=== PATIENT | female | born 1995 | race Caucasian/White ===

== ENCOUNTER → 2021-03-23 14:45 | Outpatient (CLI) | payer OTHER, SELFPAY ==
--- NOTE | 2021-03-23 14:47 | DI.US.S_ITS ---
PROCEDURE: US OB LIMITED INDICATIONS: DATES OUTSIDE/PRIOR DATING DATA: First dating scan (date and location): 03/06/2021. Estimated date of delivery (ZAKIYA) from first dating scan: 09/10/2021. The calculations are made using the ultrasound ZAKIYA of 09/10/2021. TECHNIQUE: Real-time scanning was performed of the fetus, with image documentation and biometric measurements. COMPARISON: [facility], US, US OB <= 14 WEEKS FETUS, 03/06/2021, 8:44. FINDINGS: General: A single living intrauterine gestation is present. Presentation: Transverse. Placenta: Placental position is posterior , without previa. Persistent lower uterine segment contraction noted throughout the exam. Amniotic fluid index: Subjectively normal. cm, normal range is 5-24 cm. heart rate: 157 beats per minute. Maternal cervical canal: 2.8 cm long. Normal lower limit is 2.5 cm. biometrics: Biparietal diameter: 17 weeks 6 days Head circumference: 17 weeks 3 days Abdominal circumference: 17 weeks 4 days Femur length: 17 weeks 3 days Clinically estimated gestational age: 15 weeks 4 days Composite gestational age from present scan: 17 weeks 4 days Estimated weight and percentile: 190 g Other: Limited anatomy. IMPRESSION: 17 week 4 day single living IUP and anatomic survey is limited secondary to early gestational age. Follow-up is recommended. We strive to produce accurate, complete, and clear reports of imaging services. To assist us in improving patient care, this report was composed using standard report templates and voice recognition software. Therefore, it may contain abnormal punctuation, insertions and/or omissions. Occasional wrong-word or sound-alike substitutions may occur. Though we review the report and make efforts to correct it, we do recommend that the report be read carefully in proper context to recognize any text inaccuracies. Dictated by: Reed LANDON Interpreted: Jesus Andrade MD on 03/23/2021 at 15:19 Transcribed by: FEMI on 03/23/2021 at 15:23 Approved by: Jesus Andrade M.D. on 03/23/2021 at 17:28
== END ==
PROVIDERS: PCP Obstetrics & Gynecology; Referring Provider Obstetrics & Gynecology; Visit Provider Obstetrics & Gynecology
DX: Z34.02 Encounter for supervision of normal first pregnancy, second trimester (principal); Z3A.17 17 weeks gestation of pregnancy
CPT/HCPCS: 76815

== ENCOUNTER → 2021-03-30 11:23 | Outpatient (CLI) | payer OTHER, SELFPAY ==
[2021-03-30 18:43] LABS: COVID19 -Nasal RAPID POSITIVE (Negative)
== END ==
PROVIDERS: PCP Obstetrics & Gynecology; Visit Provider Nurse Practitioner Family
DX: U07.1 COVID-19 (principal); Z20.822 Contact with and (suspected) exposure to COVID-19; R50.9 Fever, unspecified
CPT/HCPCS: 87635

== ENCOUNTER → 2021-04-06 15:41 | Outpatient (CLI) | payer OTHER, SELFPAY ==
[2021-04-06 16:32] LABS: Add Manual Diff / Slide Review NO; Basophils Absolute Auto 0 /uL (0-100); Basophils Percent Auto 0.2 % (0-2); Eosinophils Absolute Auto 0 /uL (0-450); Eosinophils Percent Auto 0.4 % (2-4); Hematocrit 31.3 % (36-46); Hemoglobin 11.1 g/dL (12.0-16.0); Lymphocytes Absolute Auto 1900 /uL (1100-4500); Lymphocytes Percent Auto 22.1 % (25-40); Mean Corpuscular HGB Conc 35.6 % (30-36); Mean Corpuscular Volume 90.1 fL (80-100); Monocytes Absolute Auto 600 /uL (0-900); Monocytes Percent Auto 6.5 % (3-14); Neutrophils Absolute Auto 6200 /uL (1500-7000); Neutrophils Percent Auto 70.8 % (50-75); Platelet Count 313 X10^3/uL (150-400); Red Blood Cell Count 3.48 X10^6/uL (4.0-5.2); Red Cell Distribution Width 13.5 % (11.6-14.8); White Blood Cell Count 8.7 X10^3/uL (4.5-11.0)
[2021-04-07 06:36] LABS: RPR Screen Non Reactive (Non Reactive)
[2021-04-07 08:12] LABS: Varicella IgG Antibody 408 index (Immune >165)
[2021-04-09 16:27] LABS: Hepatitis B Surface Antigen NEGATIVE s/c (NEGATIVE); Rubella Antibody IgG 11.3 IU/mL (>15)
[2021-04-09 16:43] LABS: HIV 1 & 2 Ab/Ag 4th Gen Combo NEGATIVE (NEGATIVE); Hep C Virus Ab w/Reflex Quant NEGATIVE s/c (NEGATIVE)
[2021-04-09 22:59] LABS: AFP, Serum 78.1 ng/mL (.); Calc Gestational Age Ultrasound (.); Estriol, Free 1.96 ng/mL (.); Inhibin A, Dimeric 175.68 pg/mL (.); Maternal Ethnicity Caucasian (.); Maternal Weight 150 lbs (.); Number of Fetuses No (.); OSBR Risk 1 IN 3220 (.); Results Report (.); Test Results *Screen Negative* (.); hCG, MoM 1.43 (.); hCG, Serum 36543 mIU/mL (.)
== END ==
PROVIDERS: PCP Obstetrics & Gynecology; Referring Provider Obstetrics & Gynecology; Visit Provider Obstetrics & Gynecology
DX: Z34.92 Encounter for supervision of normal pregnancy, unspecified, second trimester (principal); Z3A.19 19 weeks gestation of pregnancy
CPT/HCPCS: 36415; 80055; 82105; 82677; 84702; 86336; 86787; 86803; 86850; 86900; 86901; 87389

== ENCOUNTER → 2021-05-03 09:25 | Outpatient (CLI) | payer OTHER, SELFPAY ==
[2021-05-03 11:43] LABS: Appearance Urine UA SL CLOUDY; Bilirubin Urine UA NEGATIVE (NEGATIVE); Color Urine UA YELLOW; Glucose Urine UA NEGATIVE (Negative); Ketones Urine UA NEGATIVE (NEGATIVE); Leukocyte Esterase Urine UA 1+ (NEGATIVE); Nitrite Urine UA NEGATIVE (Negative); Occult Blood Urine UA NEGATIVE (Negative); Protein Urine UA NEGATIVE (Negative); Urobilinogen Urine UA 0.2 E.U./dL (0.2)
[2021-05-03 11:59] LABS: Bacteria Urine Moderate (10-30); RBC Urine None Seen (0-5/HPF); Squamous Epithelial Cell Urine 1-5 /HPF (0-5/HPF); WBC Urine 1-5/HPF (0-5/HPF)
== END ==
PROVIDERS: PCP Obstetrics & Gynecology; Visit Provider Obstetrics & Gynecology
DX: Z34.01 Encounter for supervision of normal first pregnancy, first trimester (principal)
CPT/HCPCS: 81003; 81015; 87086

== ENCOUNTER → 2021-05-21 08:07 | Outpatient (CLI) | payer OTHER, SELFPAY ==
[2021-05-21 11:17] LABS: Hematocrit 32.9 % (36-46); Hemoglobin 11.3 g/dL (12.0-16.0)
[2021-05-21 15:06] LABS: GTT (PREG) 1 Hour PP 50gm Dose 133 mg/dL (76-139)
== END ==
PROVIDERS: Referring Provider Obstetrics & Gynecology; Visit Provider Obstetrics & Gynecology
DX: Z34.92 Encounter for supervision of normal pregnancy, unspecified, second trimester (principal); Z3A.27 27 weeks gestation of pregnancy
CPT/HCPCS: 36415; 82950; 85014; 85018

== ENCOUNTER → 2021-07-19 15:15 | Outpatient (CLI) | payer OTHER, SELFPAY ==
[2021-07-19 16:51] LABS: Alanine Aminotransferase 18 IU/L (<35); Albumin 3.6 g/dL (3.5-5.0); Alkaline Phosphatase 147 U/L (38-126); Aspartate Aminotransferase 27 IU/L (14-36); BUN Creatinine Ratio 14.6 (6-22); Bilirubin Total 0.4 mg/dL (0.2-1.3); Blood Urea Nitrogen 7 mg/dL (7-17); Calcium 8.5 mg/dL (8.4-10.2); Carbon Dioxide 21 mmol/L (22-32); Chloride 108 mmol/L (98-107); Estimated Glomerular Filt Rate > 60 mL/min (>60); Globulin 3.7 g/dL (1.7-4.1); Glucose 104 mg/dL (70-100); HEMOLYSIS < 15 (0-50); Potassium 3.9 mmol/L (3.4-5.1); Sodium 137 mmol/L (137-145); Total Protein 7.3 g/dL (6.3-8.2)
[2021-07-20 10:15] LABS: Bile Acids 5.8 umol/L (0.0-10.0)
== END ==
PROVIDERS: Referring Provider Obstetrics & Gynecology; Visit Provider Obstetrics & Gynecology
DX: L29.9 Pruritus, unspecified (principal)
CPT/HCPCS: 36415; 80053; 82239

== ENCOUNTER → 2021-08-06 12:08 | Outpatient (CLI) | payer OTHER, SELFPAY ==
[2021-08-07 10:57] LABS: Strep Grp B PCR NEG for Grp B Strep
== END ==
PROVIDERS: Visit Provider Obstetrics & Gynecology
DX: Z34.03 Encounter for supervision of normal first pregnancy, third trimester (principal); Z3A.37 37 weeks gestation of pregnancy
CPT/HCPCS: 87653

== ENCOUNTER 2021-08-16 16:35 | Outpatient (CLI) | payer OTHER, SELFPAY ==
--- NOTE | 2021-08-16 17:17 | P.TNLD_ITS ---
Visit Information Visit Information Date of evaluation: 08/16/21 Primary OB Provider: Virginia Chen Reason for Evaluation: Yes non-stress test Comments/Additional reasons for admission: This patient is a 25yo P0 @38 weeks presenting with decreased movement. No other symptoms or concerns. [facility] Medical History (Updated 03/13/21 @ 22:12 by Jada Amezquita) Acne (~2008) Allergies (~1999) Ankle pain (~2013) Bronchitis (~1997) Chicken pox (~1995) Fractures (~2017) Pneumonia (~2012) Seasonal allergies (~1999) Wears glasses Surgical History (Updated 02/28/21 @ 08:56 by Carina Mullins RN) [place] teeth extracted Family History (Updated 03/13/21 @ 22:13 by Jada Amezquita) Mother Miscarriage DJD (degenerative joint disease) Macular degeneration Father Atrial fibrillation History of heart disease Grandmother Diabetes mellitus Grandfather Hypertension Glaucoma Grandmother History of heart disease Grandfather No problems noted. 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 ) current occupational exposures/hazards: No special ever needs: No seatbelt use: always do you feel safe at home: Yes Smoking Status: Never smoker second hand exposure: No alcohol intake: former (Pre-: rarely. ) substance use type: does not use during the past year weight has: remained stable well-balanced diet: daily or most days daily servings fruits/ve-4 caffeine: Yes (1 cup a week) Type(s) of exercise: walking and normal ROM and activity frequency: 3-4 times per week Exam Vital Signs (past 8 hours): 130/72 Evaluation Evaluation Baseline heart rate: 140 Variability: Moderate (11-25) monitor accelerations: Present Monitor Decelerations: Absent Category of Tracing: Reactive Status: Category l Diagnosis, Plan/Disposition Plan/Disposition Plan: Patient noted 23 movements in 30 minutes, precautions reviewed. Home with routine precautions. OB Disposition: home
== END 2021-08-16 17:15 | disposition home or self-care (01) ==
LOC: LABOR 17:24 → OB 08-17 11:36
PROVIDERS: Referring Provider Obstetrics & Gynecology; Visit Provider Obstetrics & Gynecology
DX: O36.8130 Decreased fetal movements, third trimester, not applicable or unspecified (principal); Z3A.38 38 weeks gestation of pregnancy
CPT/HCPCS: 59025; G0378; G0379

== ENCOUNTER 2021-08-19 05:00 | Emergency (ER) | payer OTHER, SELFPAY ==
[2021-08-19 05:05] VITALS: BP 118/76; PULSE 80; RESP 18; TEMP 36.1; O2SAT 97; BMI 33.2
--- NOTE | 2021-08-19 05:25 | ED_ITS ---
HPI - URI/Sore Throat General Chief Complaint: Upper Respiratory Symptoms Stated Complaint: fever/cough x2 days Time Seen by Provider: 08/19/21 05:24 Source: patient Mode of arrival: Ambulatory History of Present Illness HPI Narrative: 25-year-old female nonsmoker is a at about 30 weeks and managed locally by Dr. Chen presents with her significant other and a chief complaint of upper respiratory symptoms including nasal congestion, runny nose, sneezing cough and low-grade fever for the past 2 days. She has taken Tylenol and antihistamines with minimal relief. She denies any headache or neck pain. She is exposed to other people with similar symptoms. She denies nausea, vomiting or diarrhea. She denies dysuria, frequency or urgency. She has no vaginal bleeding or leakage of fluid. Related Data Home Medications Medication Instructions Recorded Confirmed diphenhydramine HCl 25 mg capsule 50 mg PO BEDTIME PRN cap 02/28/21 08/19/21 (Benadryl) prenat.vits,alice,nhh-seca-aejhu 1 tab PO DAILY 02/28/21 08/19/21 Allergies Allergy/AdvReac Type Severity Reaction Status Date / Time promethazine [From Phenergan] Allergy Intermediate Hives Verified 08/06/21 11:46 Sulfa (Sulfonamide Allergy Intermediate Hives Verified 08/06/21 11:46 Antibiotics) Review of Systems Review of Systems Narrative: GENERAL: See HPI HEENT: See HPI RESPIRATORY: See HPI CARDIOVASCULAR: Denies chest pain, palpitations, orthopnea, edema, GASTROINTESTINAL: Denies nausea, vomiting, abdominal pain, diarrhea, constipation, melena. : Denies dysuria, frequency, incontinence, hematuria, urinary retention. MUSCULOSKELETAL: denies weakness, joint pain, or bony pain SKIN: Denies rash, skin lesions, or other NEUROLOGIC: Denies weakness, headache, numbness, change in speech, confusion, seizures, incoordination. PSYCHIATRIC: No concerning psychosocial issues. 12 point review of systems is negative except for those stated above Patient History Medical History (Updated 08/19/21 @ 07:14 by Tyson Reeves DO) Acne (~2008) Allergies (~1999) Ankle pain (~2013) Bronchitis (~1997) Chicken pox (~1995) Fractures (~2017) Pneumonia (~2012) Seasonal allergies (~1999) Wears glasses Surgical History (Updated 02/28/21 @ 08:56 by Carina Mullins RN) [place] teeth extracted Family History (Updated 03/13/21 @ 22:13 by Jada Amezquita) Mother Miscarriage DJD (degenerative joint disease) Macular degeneration Father Atrial fibrillation History of heart disease Grandmother Diabetes mellitus Grandfather Hypertension Glaucoma Grandmother History of heart disease Grandfather No problems noted. 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 ) current occupational exposures/hazards: No special ever needs: No seatbelt use: always do you feel safe at home: Yes Smoking Status: Never smoker second hand exposure: No alcohol intake: former (Pre-: rarely. ) substance use type: does not use during the past year weight has: remained stable well-balanced diet: daily or most days daily servings fruits/ve-4 caffeine: Yes (1 cup a week) Type(s) of exercise: walking and normal ROM and activity frequency: 3-4 times per week Smoking Status: Never smoker alcohol intake frequency: 0-2 drinks per day Substance Use Type: does not use Exam Narrative Exam Narrative: GENERAL: [25] year old patient appears stated age. Well-developed patient, in mild distress. HEAD: Atraumatic. Normocephalic. EYES: Pupils equal round and reactive. Extraocular motions intact. No scleral icterus. No injection or drainage. ENT: Nasal congestion with clear bilateral drainage Throat without erythema, tonsillar hypertrophy or exudate. Airway patent. NECK: Trachea midline. Non tender CARDIOVASCULAR: Regular rate and rhythm without murmurs, gallops, or rubs. RESPIRATORY: Clear to auscultation. Breath sounds equal bilaterally. No wheezes, rales, or rhonchi. GASTROINTESTINAL: Abdomen soft, non-tender, nondistended. EXTREMITIES: No edema or joint tenderness. BACK: Nontender without deformity or crepitance. No flank tenderness. NEURO: AOx3. SKIN: No rash or erythema of visible areas Initial Vital Signs Initial Vital Signs: Vital Signs Temperature 97.0 F L 06/05/22 05:05 Pulse Rate 80 06/05/22 05:05 Respiratory Rate 18 08/19/21 05:05 Blood Pressure 118/76 08/19/21 05:05 Pulse Oximetry 97 08/19/21 05:05 Course Orders Ordered: ED Orders 08/19/21 05:55 Respiratory Panel (Film Array) Stat Vital Signs Vital signs: Vital Signs - 8 hr 08/19/21 05:05 Temperature 97.0 F L Pulse Rate 80 Respiratory Rate 18 Blood Pressure 118/76 Pulse Oximetry 97 MDM - URI/Sore Throat Lab Data Labs: Lab Results 08/19/21 Range/Units 05:55 Chlamy pneumoniae PCR Not detected (Not Detect) Adenovirus (PCR) Not detected (Not Detect) B. pertussis DNA (PCR) Not detected (Not Detecte) B.parapertussis DNA PCR Not detected (Not Detecte) Coronavirus OC43 (PCR) Detected H (Not Detect) Coronavirus HKU1 (PCR) Not detected (Not Detect) Coronavirus 229E (PCR) Not detected (Not Detect) SARS-CoV-2 (PCR) Not detected (Not Detecte) Coronavirus NL63 (PCR) Not detected (Not Detect) Human Metapneumovir PCR Not detected (Not Detect) Influenza Type A (PCR) Not detected (Not Detect) Influenza Type B (PCR) Not detected (Not Detect) M. pneumoniae (PCR) Not detected (Not Detect) Parainfluenza 1 (PCR) Not detected (Not Detect) Parainfluenza 2 (PCR) Not detected (Not Detect) Parainfluenza 3 (PCR) Not detected (Not Detect) Parainfluenza 4 (PCR) Not detected (Not Detect) RSV (PCR) Not detected (Not Detect) Entero/Rhino (PCR) Not detected (Not Detect) Discharge Plan Departure Patient Disposition: Home Clinical Impression: Viral respiratory illness Instructions: DI for Viral Upper Respiratory Infection -- Adult Activity Restrictions/Additional Instructions: *You have been diagnosed with [viral upper respiratory infection. Here swab was positive for a non COVID coronavirus *What to do: *Please continue to take your regular medications as directed. [ ] New medication prescriptions sent to your pharmacy: [ ] [ ] New medication written as a paper prescription [ x] No new medications given *Please follow up with your primary care provider in 2-3 days, call for an appointment. Let them know you were seen in the Emergency Department and that we ask that you be seen in follow up. We will electronically transmit a record of today's note if your PCP is in our system *If you do not have a primary care provider please contact the [facility] Resource line at [phone]. They will ask some questions about your medical history and help get you set up with a doctor in the community. *Return to Emergency Department if you should have any new, worsening or concerning symptoms Prescriptions: No Action prenat.vits,alice,eus-iffc-doind Tablet 1 tab PO DAILY 0RF diphenhydramine HCl [Benadryl] 25 mg capsule 50 mg PO BEDTIME PRN (Reason: allergy symptoms) 0RF Referrals: Edmundo Arguello [Primary Care Provider] - Visit Report Forms: Patient Portal/API
[2021-08-19 07:09] LABS: Adenovirus Not Detected (Not Detect); B. parapertussis Not Detected (Not Detecte); Bordetella pertussis Not Detected (Not Detecte); Chlamydophila pneumoniae Not Detected (Not Detect); Coronavirus 229E Not Detected (Not Detect); Coronavirus HKU1 Not Detected (Not Detect); Coronavirus NL 63 Not Detected (Not Detect); Coronavirus OC43 Detected (Not Detect); Human Metapneumovirus Not Detected (Not Detect); Human Rhinovirus/Enterovirus Not Detected (Not Detect); Influenza A Not Detected (Not Detect); Influenza B Not Detected (Not Detect); Mycoplasma pneumoniae Not Detected (Not Detect); Parainfluenza Virus 1 Not Detected (Not Detect); Parainfluenza Virus 2 Not Detected (Not Detect); Parainfluenza Virus 3 Not Detected (Not Detect); Parainfluenza Virus 4 Not Detected (Not Detect); Respiratory Syncytial Virus Not Detected (Not Detect); SARS- CoV-2 Not Detected (Not Detecte)
== END 2021-08-19 07:20 | disposition home or self-care (01) ==
PROVIDERS: Emergency Provider Emergency Medicine
DX: J06.9 Acute upper respiratory infection, unspecified (principal); Z20.822 Contact with and (suspected) exposure to COVID-19
CPT/HCPCS: 87633; 99281; 99282

== ENCOUNTER 2021-08-19 20:48 | Inpatient (IN) | payer OTHER, SELFPAY ==
[2021-08-20] MEDS: AZITHROMYCIN 500 MG in DEXTROSE 5% IN WATER 250 ML 250 MG IV (00:25)
[2021-08-20] MEDS: CEFAZOLIN 2 GM/20 ML SYRINGE IV (00:25)
[2021-08-20 00:33] LABS: Add Manual Diff / Slide Review NO; Basophils Absolute Auto 0 /uL (0-100); Basophils Percent Auto 0.3 % (0-2); Eosinophils Absolute Auto 100 /uL (0-450); Eosinophils Percent Auto 1.1 % (2-4); Hematocrit 32.2 % (36-46); Hemoglobin 10.7 g/dL (12.0-16.0); Lymphocytes Absolute Auto 1700 /uL (1100-4500); Mean Corpuscular HGB Conc 33.2 % (30-36); Mean Corpuscular Hemoglobin 29.8 PG (26-34); Mean Corpuscular Volume 89.6 fL (80-100); Monocytes Absolute Auto 700 /uL (0-900); Monocytes Percent Auto 7.8 % (3-14); Neutrophils Absolute Auto 5800 /uL (1500-7000); Neutrophils Percent Auto 69.8 % (50-75); Platelet Count 316 X10^3/uL (150-400); Red Blood Cell Count 3.59 X10^6/uL (4.0-5.2); Red Cell Distribution Width 13.6 % (11.6-14.8); White Blood Cell Count 8.3 X10^3/uL (4.5-11.0)
[2021-08-20 03:28] LABS: Adenovirus Not Detected (Not Detect)
[2021-08-20 03:31] LABS: B. parapertussis Not Detected (Not Detecte); Bordetella pertussis Not Detected (Not Detecte); Coronavirus 229E Not Detected (Not Detect); Coronavirus HKU1 Not Detected (Not Detect); Coronavirus NL 63 Not Detected (Not Detect); Coronavirus OC43 Detected (Not Detect); Human Metapneumovirus Not Detected (Not Detect); Human Rhinovirus/Enterovirus Not Detected (Not Detect); Influenza A Not Detected (Not Detect); Influenza B Not Detected (Not Detect); Parainfluenza Virus 1 Not Detected (Not Detect); Parainfluenza Virus 2 Not Detected (Not Detect); Parainfluenza Virus 3 Not Detected (Not Detect); Parainfluenza Virus 4 Not Detected (Not Detect); Respiratory Syncytial Virus Not Detected (Not Detect); SARS- CoV-2 Not Detected (Not Detecte)
[2021-08-20 03:32] LABS: Chlamydophila pneumoniae Not Detected (Not Detect); Mycoplasma pneumoniae Not Detected (Not Detect)
[2021-08-20] MEDS: LACTATED RINGERS 1,000 ML 100 ML IV ×4 (06:41→23:31)
--- NOTE | 2021-08-20 08:16 | P.HPOB_ITS ---
OB HPI Date/Time Date of admission: 08/19/21 Date Patient Seen: 08/20/21 Time Patient Seen: 07:45 History of Present Condition Chief complaint: OBS ZAKIYA Calculator Estimated Delivery Date Method Current WG Current Estimate 08/27/21 Ultrasound #2 39w 0d Other Estimates 10/07/21 LMP (Certain) 33w 1d 09/11/21 Ultrasound #1 36w 6d Estimated Gestational Age (weeks): 39 : 1 Para: 0 Narrative: This patient is a 25yo @39+0 by 2nd trimester US, presenting with PROM at 8:30 PM for copious clear fluid. Reports slowly increasing contractions, no VB, no LOF. Good movement, no other symptoms. has been otherwise uncomplicated. No significant medical, surgical history. care: good care and initiated at week # (15) Dating criteria OB: based on 2nd trimester US only Ultrasounds: normal mid trimester US Obstetrical complications: none Medical complications OB: none Indications Indication for induction OB: other (PROM) Preadmission Labs Last OB Lab Results: Blood Type O Positive 08/19/21 23:50 08/19/21 Antibody Screen Negative 08/19/21 23:50 08/19/21 Hematocrit 32.2 % (36-46) L 08/19/21 23:50 08/19/21 Hemoglobin 10.7 g/dL (12.0-16.0) L 08/19/21 23:50 08/19/21 Hepatitis B Surface Antigen Negative s/c (NEGATIVE) 04/06/21 15:56 04/06/21 Hepatitis C Antibody Negative s/c (NEGATIVE) 04/06/21 15:56 04/06/21 Rubella Antibody 11.3 IU/mL (>15) L 04/06/21 15:56 04/06/21 Varicella-Zoster IgG Antibody 408 index (Immune >165) 04/06/21 15:56 04/06/21 Glucose 1 Hour 133 mg/dL (76-139) 05/21/21 10:00 05/21/21 Group B Streptococcus (PCR) Neg for grp b strep 08/06/21 12:08 08/06/21 -: Chlamydia screen: negative, Gonorrhea screen: negative and Urine: negative Genetic Screens: Quad screen: Normal External Labs -: Urine: negative Evaluation Evaluation Baseline heart rate: 135 Variability: Moderate (11-25) monitor accelerations: Present Monitor Decelerations: Absent Contraction Frequency (minutes): 10 Uterine Contraction Intensity: Moderate Category of Tracing: Reactive Status: Category l Dilation (cm): 3 Effacement (%): 75 Dilation: 3-4 cm Effacement: >/=80% station: -1 Position of cervix: mid Consistency: medium Faust score: 9 PFSH Medical History Acne (~2008) Allergies (~1999) Ankle pain (~2013) Bronchitis (~1997) Chicken pox (~1995) Fractures (~2017) Pneumonia (~2012) Seasonal allergies (~1999) Wears glasses Surgical History [place] teeth extracted Family History Mother Miscarriage DJD (degenerative joint disease) Macular degeneration Father Atrial fibrillation History of heart disease Grandmother Diabetes mellitus Grandfather Hypertension Glaucoma Grandmother History of heart disease Grandfather No problems noted. 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 ) current occupational exposures/hazards: No special ever needs: No seatbelt use: always do you feel safe at home: Yes Smoking Status: Never smoker second hand exposure: No alcohol intake: former (Pre-: rarely. ) substance use type: does not use during the past year weight has: remained stable well-balanced diet: daily or most days daily servings fruits/ve-4 caffeine: Yes (1 cup a week) Type(s) of exercise: walking and normal ROM and activity frequency: 3-4 times per week Meds Home Medications and Allergies Home Medications Medication Instructions Recorded Confirmed Type diphenhydramine HCl 25 mg capsule 50 mg PO BEDTIME PRN cap 02/28/21 08/19/21 History (Benadryl) prenat.vits,alice,mko-aidh-pmjjo 1 tab PO DAILY 02/28/21 08/19/21 History Allergies Allergy/AdvReac Type Severity Reaction Status Date / Time promethazine [From Phenergan] Allergy Intermediate Hives Verified 08/06/21 11:46 Sulfa (Sulfonamide Allergy Intermediate Hives Verified 08/06/21 11:46 Antibiotics) Review of Systems Constitutional Constitutional: Reports system reviewed and no additional complaints, except as documented Cardiovascular Cardiovascular: Reports system reviewed and no additional complaints, except as documented Respiratory Respiratory: Reports system reviewed and no additional complaints, except as documented Gastrointestinal Gastrointestinal: Reports system reviewed and no additional complaints, except as documented Genitourinary Genitourinary: Reports system reviewed and no additional complaints, except as documented Musculoskeletal Musculoskeletal: Reports system reviewed and no additional complaints, except as documented Neurologic Neurologic: Reports system reviewed and no additional complaints, except as documented OB Exam Narrative Exam Narrative: Patient resting in bed, comfortable through contractions. GI Palpation: Yes soft and No tender External Female Exam: Yes normal external appearance Other: EFW 7#8 Objective Labs Result Diagrams: 08/19/21 23:50 Labs: Laboratory Results - last 24 hr 08/19/21 08/19/21 08/20/21 23:50 23:50 01:01 WBC 8.3 RBC 3.59 L Hgb 10.7 L Hct 32.2 L MCV 89.6 MCH 29.8 MCHC 33.2 RDW 13.6 Plt Count 316 Neut % (Auto) 69.8 Lymph % (Auto) 21.0 L Meagher % (Auto) 7.8 Eos % (Auto) 1.1 L Baso % (Auto) 0.3 Neut # (Auto) 5800 Lymph # (Auto) 1700 Meagher # (Auto) 700 Eos # (Auto) 100 Baso # (Auto) 0 Chlamy pneumoniae PCR Not detected Adenovirus (PCR) Not detected B. pertussis DNA (PCR) Not detected B.parapertussis DNA PCR Not detected Coronavirus OC43 (PCR) Detected H Coronavirus HKU1 (PCR) Not detected Coronavirus 229E (PCR) Not detected SARS-CoV-2 (PCR) Not detected Coronavirus NL63 (PCR) Not detected Human Metapneumovir PCR Not detected Influenza Type A (PCR) Not detected Influenza Type B (PCR) Not detected M. pneumoniae (PCR) Not detected Parainfluenza 1 (PCR) Not detected Parainfluenza 2 (PCR) Not detected Parainfluenza 3 (PCR) Not detected Parainfluenza 4 (PCR) Not detected RSV (PCR) Not detected Entero/Rhino (PCR) Not detected Blood Type O Positive Antibody Screen Negative Assessment and Plan Assessment and Plan Assessment and Plan narrative: This patient is admitted with PROM. Due to floor staffing pitocin could not be started overnight, but she is now 12 hours ruptured and not maricruz significantly. Patient is for pitocin augmentation per protocol. Patient declines pitocin without epidural, which will be obtained now. - cEFM, toco - pitocin per protocol, discussed at length with patient and spouse including risk of intraamniotic infection with rupture longer than 24 hours
[2021-08-20] MEDS: OXYTOCIN PREMIX 30 UNIT/500 ML PLAST..BAG IV (08:32)
[2021-08-20] MEDS: FENT 2MCG/ML BUPIV 0.125% EPI 200 MCG/100 ML PLAST..BAG 6 MCG EPIDURAL ×2 (10:40→17:41)
--- NOTE | 2021-08-20 11:37 | PM.AN.REGBLK ---
Regional Block Pre-procedure Procedure: Continuous Lumbar Epidural for L&D Attending OB provider: Virginia Chen PMH/HUMBLE narrative: term gestation, induction for PROM PSH/Anesthesia history narrative: None ASA Class: II Labs: Hct 32.2 % (36-46) L 08/19/21 23:50 Plt Count 316 X10^3/uL (150-400) 08/19/21 23:50 Medications: Current Medications Generic Name Dose Route Start Last Admin Trade Name Freq PRN Reason Stop Dose Admin Carboprost Tromethamine 250 mcg 08/19/21 21:43 Carboprost 250 Mcg/Ml Ampul IM Q90M PRN Bleeding Diphenhydramine HCl 25 mg 08/20/21 09:50 Diphenhydramine 50 Mg/Ml Vial IV Q10M PRN Pruritis Lactated Ringer's 1,000 mls @ 100 mls/hr 08/19/21 21:45 08/20/21 10:11 Lactated Ringers IV 100 mls/hr CONT EARL Administration Oxytocin/Lactated Ringer's 30 unit in 500 mls @ 200 mls/hr 08/19/21 21:43 Oxytocin Premix IV CONT PRN Bleeding Protocol Tranexamic Acid 1,000 mg/ 100 mls @ 200 mls/hr 08/19/21 21:43 Sodium Chloride IV NOW PRN Bleeding Oxytocin/Lactated Ringer's 30 unit in 500 mls @ 3 mls/hr 08/19/21 21:45 08/20/21 08:32 Oxytocin Premix IV 3 milliunit/min TITRATE EARL 3 mls/hr Administration Protocol 3 MILLIUNIT/MIN FENT 2MCG/ML BUPIV 0.125% EPI 200 mcg in 100 mls @ 6 mls/hr 08/20/21 10:00 08/20/21 10:40 Fentanyl/Bupiv/Ns 2mcg/Ml - 0.125% EPIDURAL 6 mls/hr CONT EARL Administration Methylergonovine Maleate 0.2 mg 08/19/21 21:43 Methylergonovine 0.2 Mg Tablet PO Q6HR PRN Heavy Bleeding Methylergonovine Maleate 0.2 mg 08/19/21 21:43 Methylergonovine 0.2 Mg/Ml Vial IM NOW PRN Bleeding Misoprostol 800 mcg 08/19/21 21:43 Misoprostol 200 Mcg Tablet HI NOW PRN Bleeding Misoprostol 1,000 mcg 08/19/21 21:43 Misoprostol 200 Mcg Tablet HI NOW PRN Bleeding Misoprostol 400 mcg 08/19/21 21:43 Misoprostol 200 Mcg Tablet SL NOW PRN Bleeding Nalbuphine HCl 2.5 mg 08/20/21 09:50 Nalbuphine 20 Mg/Ml Ampul IV Q10M PRN Pruritis Oxytocin 10 unit 08/19/21 21:43 Oxytocin 10 Unit/Ml Vial IM NOW PRN Bleeding Allergies: Allergies Allergy/AdvReac Type Severity Reaction Status Date / Time promethazine [From Phenergan] Allergy Intermediate Hives Verified 08/06/21 11:46 Sulfa (Sulfonamide Allergy Intermediate Hives Verified 08/06/21 11:46 Antibiotics) Procedure Insertion date: 08/20/21 Insertion time: 09:58 Prep/Local: betadine x3 and 1% lidocaine Interspace: L 3-4 Patient position: sitting Needle: 18 gauge Marielatead Loss of resistance with: saline DAWIT at (cm): 6 Catheter placed at SKIN (cm): 11 Insertion: No CSF, No Blood, No Paresthesia with insertion, No Paresthesia with injection and No Test dose reaction Initial Medications TEST DOSE time: 10:18 BOLUS DOSE time: 10:24 BOLUS DOSE med: other (Fentanyl 100 mcg) Infusion INFUSION: 0.125% bupivacaine and with fentanyl 2 mcg/mL Initial rate (mL/hr): 8 Subsequent interventions: She was sleeping peacefully after her epidural placement when she woke up in pain. No uterine rupture suspected. The epidural has not moved out of place. I removed it and replaced it with a CSE at 12:10. Intrathecal dose of Bupi 2.5 mg and Fentanyl 20 mcg. Epidural advanced without difficulty. Test dose negative at 12:31. Epidural bolus of Fentanyl 80 mcgs given at 12:32.. She was quickly comfortable. Infusion resumed. 17:45. Ce= 8. Station 0. c/o back pressure. Bolus given of 5 ml lido 1.5% with epi, and Fentanyl 100 mcg. 21:15 - C&P with sudden onset of severe pain. Screaming. Bolus given of 5 ml lido 1.5% with epi, and Fentanyl 100 mcg. 21:35 - No improvement. Catheter inspected and noted to be out of position. Plan for replacement. Pt to sitting position. She also wants to use the bedpan, so it is placed under her. She is able to sit still for the CSE. Spinal dose given at L 3-4 easily after sterile prep/drape/ local and after removal of previous epidural. She becomes immediately comfortable and wants to fall asleep. She is laid to her left side, bed moreland removed unused, back reprepped and redraped, and after attention is paid to her IV function (it is successfully addressed by the RN), I am able to place her epidural at L 3-4 right paramedian and have a negative test dose. Spinal portion is dose with Bupi 2.5 mg and Fentanyl 20 mcg. Epidural bolus of Fentanyl 80 mcgs given. Pt still asleep at 22:45, FHT reassuring, FOB reassured and encouraged to take a break. 23:40: Pt refuses to go on with her labor. Decision for . The epidural has again stopped working for her. Since the spinal portion of the CSE has worked well, I will do a spinal for her so that she can receive Duramorph. Post-procedure Anesthesia time START: 09:58 Anesthesia time END: 00:15 Post-procedure Anesthesia Assessment: Yes CV function: HR/BP stable, Yes Resp function: RR/sat/airway adequate, Yes Post-op hydration adequate, Yes Pain control adequate, Yes Nausea & vomiting absent, Yes Temperature > 36 C and Yes Mental status appropriate
--- NOTE | 2021-08-20 13:37 | PM.OBPNLAB ---
Date/Time Date Patient Seen: 08/20/21 Time Patient Seen: 13:37 Pain Control Pain control: epidural Comments: Patient required replacement of epidural Pelvic Exam Dilation (cm): 4 Effacement (%): 100 station: -1 Amniotic membrane status: Leaking (clear fluid) Contractions Pitocin rate (mU/min): 7 Contraction frequency (min): 4 Contraction pattern: Regular Status status: Category l Heart Rate Baseline: 130 Monitor Accelerations: Present Monitor Decelerations: Absent Monitor Variability: Moderate Assessment and Plan Assessment: induction ongoing Plan: continuous present management Comments: This patient is being induced for PROM. Patient had refused pitocin and has required two epidurals but is now more comfortable, discussed importance of induction as now ruptured x 18 hours. For frequent repositioning, pit per protocol.
--- NOTE | 2021-08-20 18:34 | PM.OBPNLAB ---
Date/Time Date Patient Seen: 08/20/21 Time Patient Seen: 17:30 Pain Control Pain control: epidural Pelvic Exam Dilation (cm): 8 Effacement (%): 100 station: 0 Amniotic membrane status: Leaking (clear fluid) Contractions Pitocin rate (mU/min): 10 Contraction frequency (min): 2 Contraction pattern: Regular Status status: Category l Heart Rate Baseline: 135 Monitor Accelerations: Present Monitor Decelerations: Absent Monitor Variability: Moderate Assessment and Plan Assessment: active labor Plan: continuous present management Comments: 8.5cm. For epidural bolus, repositioning. Anticipate .
--- NOTE | 2021-08-20 19:42 | P.PNOB_ITS ---
Date/Time Date Patient Seen: 08/20/21 Time Patient Seen: 19:42 Pain Control Pain control: tolerating well and epidural Pelvic Exam Dilation (cm): 9 Effacement (%): 100 station: 0 Amniotic membrane status: Leaking (clear fluid) Comments: 9.5 with thick anterior lip. Palpably LOP, confirmed with US. Placed in exagg erated Agee on left. Contractions Pitocin rate (mU/min): 12 Contraction frequency (min): 2 Contraction pattern: Regular Contraction intensity: Moderate Status status: Category l Heart Rate Baseline: 140 Monitor Accelerations: Absent Monitor Decelerations: Absent Monitor Variability: Moderate Assessment and Plan Assessment: induction ongoing Plan: continuous present management
--- NOTE | 2021-08-20 21:41 | PM.OBPNLAB ---
Date/Time Date Patient Seen: 08/20/21 Time Patient Seen: 21:41 Pain Control Pain control: other (for epidural replacement) Pelvic Exam Dilation (cm): 10 Effacement (%): 100 station: +1 Amniotic membrane status: Leaking (clear fluid) Contractions Contraction frequency (min): 2 Contraction pattern: Regular Contraction intensity: Moderate Status status: Category ll Heart Rate Baseline: 155 Monitor Accelerations: Absent Monitor Decelerations: Early Monitor Variability: Minimal Comments: monitoring c/b maternal movement Assessment and Plan Plan: continuous present management Comments: Patient had been pushing for 45 minutes with good effort and some progress, but epidural appears to have dislodged based on appearance of bloody fluid in tegaderm over catheter with significant patient pain. Patient requesting section, but for epidural replacement and reassessment after copious coaching. Pitocin currently off.
[2021-08-20] MEDS: PENICILLIN G POTASSIUM 5,000,000 UNIT in DEXTROSE 5% IN WATER 250 ML 250 UNIT IV (23:04)
--- NOTE | 2021-08-20 23:17 | PM.OBPNLAB ---
Date/Time Date Patient Seen: 08/20/21 Time Patient Seen: 23:17 Pelvic Exam Dilation (cm): 10 Effacement (%): 100 station: +2 Amniotic membrane status: Leaking (clear fluid) Contractions Contraction frequency (min): 2 Contraction pattern: Regular Contraction intensity: Moderate Status status: Category ll Heart Rate Baseline: 155 Monitor Decelerations: Absent Monitor Variability: Minimal Assessment and Plan Plan: Comments: This patient pushed for 45 minutes prior to her epidural coming out of place. Replacement took approximately 1 hr, and the patient reports inadequate ongoing pain control. She declines any further pushing and emphatically requests primary section. We discussed risk of infection, hemorrhage, damage to bowel and bladder, and risks in future pregnancies including uterine rupture and abnormal placentation. The patient and her partner vocalized understanding, informed consent was obtained and consents were signed.
--- NOTE | 2021-08-21 | PATH_ITS ---
[facility] Accession Number: [id number] . 01 Material submitted: . ovary - RIGHT OVARIAN CYST . 01 Clinical history: . . 01 Diagnosis: Right Ovarian Cyst, Excision: Corpus luteal cyst. MRV 08/24/2021 1014 Local . 01 Electronically signed: . Delores Guevara MD, Pathologist NPI- [id number] . 01 Gross description: . Received in formalin, labeled with the patient's name and right ovarian cyst, and consists of a previously disrupted, parker, membranous cystic structure measuring 3.3 x 1.2 x 0.4 cm. Multiple pale parker nodules consistent with papillary excrescences are identified measuring up to 0.2 cm in greatest dimension. The presumed external surface is inked blue. The specimen is serially sectioned and submitted entirely in cassettes A1-A2. ([id number]) /FRR 08/24/2021 0238 Local . 01 Pathologist provided ICD-10: N83.11 . 01 CPT . 371774 Performed at: 01 [facility] Cyt[facility] [address] [place] [address], [place], [place] [id number] MD Patricio Corea MD Phone: [phone]
[2021-08-21] MEDS: METHYLERGONOVINE 0.2 MG/ML VIAL IM (00:58)
[2021-08-21 01:30] VITALS: BP 131/46; PULSE 74; RESP 22; TEMP 36.1; O2SAT 98
--- NOTE | 2021-08-21 01:34 | PM.OBCS.1 ---
Operative Date/Time/Diagnoses Date of procedure: 08/21/21 Time of procedure: 12:00 Pre-op diagnosis: arrest of descent Post-op diagnosis: same Procedure & Clinicians Procedure: primary section Same procedure as scheduled: Yes Indications: maternal intolerance of labor, arrest of descent Surgeon: Virginia Chen Public Health Aides Teacher: Hazel Caceres Reason for Public Health Aides Teacher: assistance with retraction, management of hemostasis, suturing Anesthesia Type: Spinal Operative Notes Findings: Female in cephalic, OP presentation, apgars 8+9, loose nuchal x1, weight 7#2. Normal uterus, tubes, and left ovary. Right ovary with benign appearing but 5cm cyst. Closure Type: primary Specimen(s): cord blood Intraoperative meds administered: Duramorph, Ketorolac, Methergine and Pitocin Estimated Blood Loss (mL): 750 Procedure in detail: EBL: 750ccs Fluids:500ccs UOP: 900ccs clear dark yellow urine Procedures: The patient was taken to the operating room where spinal anesthesia was placed and found to be adequate. She was prepped and draped in the normal sterile fashion in the dorsal supine position with a leftward tilt. A Pfannenstiel skin incision was made with a scalpel and carried through to the underlying layer of fascia. The fascia was incised in the midline and the incision extended laterally with Ren scissors. The superior aspect of this incision was grasped with Tee clamps, elevated, and the underlying rectus muscles dissected off bluntly and with the curved Ren scissors. Attention was then turned to the inferior aspect of this incision which, in a similar fashion, was grasped, tented up with the Tee clamps, and the rectus muscles dissected off bluntly and with the curved Ren scissors. The rectus muscles were then in the midline, and the peritoneum identified, tented up, and entered sharply with Metzenbaum scissors. The peritoneal incision was extended superiorly and inferiorly with good visualization of the bladder. The bladder blade was inserted and the vesicouterine peritoneum identified, grasped with pickups, and entered sharply with the Metzenbaum scissors. This incision was extended laterally, and the bladder flap created digitally. The bladder blade was then reinserted and the lower uterine segment incised in transverse fashion with the scalpel. The uterine incision was bluntly extended laterally. The bladder blade was removed, and the infant's head delivered atraumatically with assistance of a vacuum. After 30 seconds of delayed cord clamping, the cord was clamped and cut. The nose and mouth were suctioned as needed with a bulb syringe, and the was handed off to awaiting pediatricians. The placenta was then removed spontaneously, and the uterus was exteriorized and cleared of all clots and debris. The uterine incision was repaired with 1-0 chromic in a running, locked fashion and a 2nd layer of the same suture was used to obtain excellent hemostasis. Attention was then turned to the right ovary, where the benign but large cyst was drained and the cyst wall excised. Hemostasis was achieved with the bovie. The uterus was returned to the abdomen, and the gutters were cleared of all clots and debris. The bladder flap was closed with 2-0 Vicryl in a running fashion, the peritoneum was closed with 3-0 Vicryl, and the fascia reapproximated with 0 Vicryl in a running fashion. The subcutaneous layer was placed with 3 0 Vicryl in an interrupted fashion and the skin was closed with 4-0 biosyn in a running fashion. The patient tolerated the procedure well. sponge lap and needle counts were correct x2. 2 g of Ancef and 500mg of Azithromycin were given at commencement of the case. The patient was taken to the recovery room in stable condition. Complications: none Baby 1: Infant Gender: Female Presentation: vertex Position: Occiput Posterior Placental Delivery Description: Manual Removal Cord Vessel Description: 3 Vessels score (1 min): 8 score (5 min): 9 weight: 7 lb 2 oz Post-operative Condition: stable Disposition: PACU Aftercare: routine postop
[2021-08-21 01:35] VITALS: BP 113/61; PULSE 81; RESP 12; O2SAT 98
[2021-08-21 01:40] VITALS: BP 117/61; PULSE 72; RESP 17; O2SAT 98
--- NOTE | 2021-08-21 01:44 | SUR.OPER ---
Supine on padded OR bed, head on pillow, arms secured on padded arm boards at <90 degrees abduction, legs uncrossed, safety belt at thigh, tape over blanket over lower legs.
[2021-08-21 01:45] VITALS: BP 118/64; PULSE 70; RESP 15; O2SAT 98
[2021-08-21 01:55] VITALS: BP 112/63; PULSE 69; RESP 16; O2SAT 98
--- NOTE | 2021-08-21 02:03 | SUR.OPER ---
LIVE BABY GIRL TOB 0042. CORD BLOOD AND PLACENTA GIVEN TO OB RN.
[2021-08-21 02:05] VITALS: BP 121/74; PULSE 98; RESP 18; TEMP 36.3; O2SAT 100
--- NOTE | 2021-08-21 02:26 | SUR.PHASEI ---
0207 to center, awake, talking, tolerating PO intake well. VSS. Hand off to BC RN, no questions. Baby and dad present.
[2021-08-21] MEDS: ONDANSETRON 4 MG/2 ML INJ IV (04:24)
[2021-08-21] MEDS: diphenhydrAMINE 50 MG/ML VIAL IV (04:24)
[2021-08-21] MEDS: KETOROLAC 30 MG/ML VIAL IV ×3 (07:25→20:52)
[2021-08-21] MEDS: ACETAMINOPHEN 325 MG TABLET 650 MG PO ×2 (07:26→20:53)
[2021-08-21] MEDS: LANOLIN OINT 7 GM 1 APPLIC TOP (07:40)
[2021-08-21] MEDS: NALOXONE 0.4 MG/ML VIAL 0.2 MG IV (07:40)
[2021-08-21] MEDS: DOCUSATE 100 MG CAPSULE 200 MG PO (09:32)
[2021-08-22] MEDS: ACETAMINOPHEN 325 MG TABLET 650 MG PO ×2 (03:31→18:06)
[2021-08-22 05:09] LABS: Add Manual Diff / Slide Review NO; Basophils Absolute Auto 100 /uL (0-100); Basophils Percent Auto 0.4 % (0-2); Eosinophils Absolute Auto 100 /uL (0-450); Eosinophils Percent Auto 0.3 % (2-4); Hematocrit 29.2 % (36-46); Hemoglobin 9.8 g/dL (12.0-16.0); Lymphocytes Absolute Auto 3500 /uL (1100-4500); Lymphocytes Percent Auto 19.5 % (25-40); Mean Corpuscular HGB Conc 33.7 % (30-36); Mean Corpuscular Hemoglobin 30.1 PG (26-34); Mean Corpuscular Volume 89.1 fL (80-100); Monocytes Absolute Auto 1300 /uL (0-900); Monocytes Percent Auto 7.3 % (3-14); Neutrophils Absolute Auto 13200 /uL (1500-7000); Neutrophils Percent Auto 72.5 % (50-75); Platelet Count 320 X10^3/uL (150-400); Red Blood Cell Count 3.27 X10^6/uL (4.0-5.2); Red Cell Distribution Width 13.9 % (11.6-14.8); White Blood Cell Count 18.2 X10^3/uL (4.5-11.0)
--- NOTE | 2021-08-22 07:14 | PM.OBPN.1 ---
Subjective - OB Subjective Patient comments: no complaints [place] baby status: doing well [place] feeding status: exclusively breast feeding Date Patient Seen: 08/22/21 Time Patient Seen: 07:14 Interval history: POD#1 S/P Primary for secondary arrest. Doing well, tolerating regular diet, + flatus and starting to ambulate independently. Lochia minimal. Infant doing well and oncology consultant working with the patient/baby. Exam Vital Signs (past 8 hours): Oxygen Delivery Method Room Air Const General: cooperative and comfortable Nutritional Appearance: average body habitus Orientation: alert and oriented x3 HENMT Head: normal to inspection, atraumatic and abrasion Ears: hearing grossly normal bilaterally Face and sinus: face symmetric Eyes General: appearance normal, both eyes and all related structures Conjunctivae: conjunctivae normal Sclera: sclerae normal EOM: EOM intact bilaterally Neck Neck: normal visual inspection Resp Effort & Inspection: normal respiratory effort and able to speak in complete sentences Auscultation: clear to auscultation bilaterally Cardio Rate: regular rate Rhythm: regular rhythm Heart Sounds: S1 normal, S2 normal and no murmurs GI Inspection: normal to inspection and incision (Surgical dressing clean and dry) Palpation: soft, no hepatosplenomegaly, mass (Firm, mildly tender fundus, U -4) and tender (Mild, diffuse postsurgical tenderness) Auscultation: normoactive bowel sounds External Female Exam: other (No significant bleeding noted) Extrem General: no calf tenderness Psych Appearance: grossly normal Mental Status: mental status grossly normal Speech and Movement: speech and movement normal Mood: congruent mood Affect: normal affect Attitude: cooperative Thought Process: normal Thought Content: normal Judgment: judgment good Objective Labs Result Diagrams: 08/22/21 04:50 Labs: Laboratory Results - last 24 hr 08/22/21 04:50 WBC 18.2 H RBC 3.27 L Hgb 9.8 L Hct 29.2 L MCV 89.1 MCH 30.1 MCHC 33.7 RDW 13.9 Plt Count 320 Neut % (Auto) 72.5 Lymph % (Auto) 19.5 L [place] % (Auto) 7.3 Eos % (Auto) 0.3 L Baso % (Auto) 0.4 Neut # (Auto) 22033 H Lymph # (Auto) 3500 [place] # (Auto) 1300 H Eos # (Auto) 100 Baso # (Auto) 100 Assessment & Plan Assessment and Plan (1) delivery, delivered, current hospitalization: Status: Acute Assessment and plan: Continue routine post care with plans for discharge in the a.m.. Plan day: 1 plan OB: routine postop care Time Spent With Patient Time: Total time spent is greater than 50% in coordination of care (as documented) at patient's floor/unit and/or counseling patient: Time with patient: 15-24 minutes
[2021-08-22] MEDS: IBUPROFEN 600 MG TABLET PO ×2 (10:04→16:25)
[2021-08-22] MEDS: DOCUSATE 100 MG CAPSULE 200 MG PO (10:04)
[2021-08-23] MEDS: IBUPROFEN 600 MG TABLET PO ×2 (01:18→10:29)
[2021-08-23] MEDS: ACETAMINOPHEN 325 MG TABLET 650 MG PO ×2 (01:18→10:29)
--- NOTE | 2021-08-23 09:39 | PM.OBDS.1 ---
Discharge Providers Provider Date of admission: 08/19/21 20:48 Discharge Date: 08/23/21 Primary care physician: Edmundo Arguello Consults: 08/21/21 02:07 Consult to [employer] [id number] Routine Comment: Discharge provider: Virginia Chen MD Summary Hospital Course Date Patient Seen: 08/23/21 Time Patient Seen: 09:40 Diagnoses: primary section Hospital Course: This patient was admitted and induced for PROM with pitocin. She progressed to fully dilated, but after a 45 minute second stage, had inadequate pain relief from her epidural and requested elective section. After counselling on risks and benefits, she was taken to surgery and delivered of a healthy baby girl without complication. Her course was uncomplicated, and she was discharged home on POD#2 with routine follow up. Peripartum Data Infant Delivery Method: Section complications: none 1: Gender: Female Disposition of : home Discharge Diagnosis (1) delivery, delivered, current hospitalization: Status: Acute Status at Discharge Cognitive/behavioral status at discharge: oriented Functional status at discharge: independent ambulation Overall status at discharge: patient is progressing back to baseline Time Spent with Patient Time attestation: Total time spent providing and/or coordinating discharge services: Objective Labs Result Diagrams: 08/22/21 04:50 Exam Vital Signs (past 8 hours): 115/64, HR 58, afebrile Oxygen Delivery Method Room Air Narrative Exam Narrative: Patient resting in bed. Ambulating, voiding, passing flatus, tolerating PO, mild lochia, no PIH symptoms. Const General: cooperative, healthy appearing, comfortable and well groomed Resp Effort & Inspection: normal respiratory effort Auscultation: clear to auscultation bilaterally Cardio Rate: regular rate Rhythm: regular rhythm GI Palpation: soft and No tender Other: fundus firm, 1 cm below u. incision c/d/i, covered by aquacell. Extrem General: normal to inspection Discharge Plan Discharge Plan Patient Disposition: Home Discharge orders & Medications Prescriptions: New oxycodone 5 mg tablet 5 mg PO Q6H PRN (Reason: pain) Qty: 20 0RF Rx Instructions: Take as often as every 6 hours for pain. ferrous sulfate 325 mg (65 mg iron) tablet 325 mg PO DAILY Qty: 30 0RF Rx Instructions: Take daily. Continued prenat.vits,alice,[id number] Tablet 1 tab PO DAILY diphenhydramine HCl [Benadryl] 25 mg capsule 50 mg PO BEDTIME PRN (Reason: allergy symptoms) Follow up/Referrals: Virginia Chen MD [Physician] - 1 Week (incision check) Diet/Activity/Treatments Diet: Regular Activity: Nothing in the vagina for 6 weeks. Avoid lifting more than 10 pounds for 6 weeks. If you have increasing bleeding, fevers, chills, nausea, headaches, or any other symptoms or concerns, call or come to the emergency room. Skin/Wound/Dressing Care Skin care: OK to shower. Bandage stays until incision check. Report to your healthcare provider any signs of infection, such as:: chills, fever, night sweats, increased pain, unusual drainage and unusual redness Visit Report/Discharge Packet Instructions: DI for Stand Alone Forms: Discharge: Care Discharge Data Primary Care Provider: Edmundo Arguello
[2021-08-23 09:48] VITALS: BP 115/64; PULSE 58; RESP 16; TEMP 36.4
== END 2021-08-23 11:32 | disposition home or self-care (01) | DRG 788 ==
PROVIDERS: Admitting Provider Obstetrics & Gynecology; Referring Provider Obstetrics & Gynecology; Visit Provider Obstetrics & Gynecology
PROC: 10D00Z1 Extraction of Products of Conception, Low, Open Approach (ICD-10-PCS; CPT 59514; principal; 2021-08-21 00:15)
DX: O42.02 Full-term premature rupture of membranes, onset of labor within 24 hours of rupture (principal); O62.1 Secondary uterine inertia; Z3A.39 39 weeks gestation of pregnancy; Z37.0 Single live birth; O34.83 Maternal care for other abnormalities of pelvic organs, third trimester; N83.11 Corpus luteum cyst of right ovary; Z20.822 Contact with and (suspected) exposure to COVID-19
CPT/HCPCS: 01967; 01968; 36415; 59050; 59510; 59514; 76815; 85025; 86850; 86900; 86901; 87633; G0379; J0690; J1100; J1200; J1885; J2210; J2274; J2310; J2405; J2540; J2590; J3010

== ENCOUNTER 2022-03-03 11:04 | Emergency (ER) | payer OTHER, SELFPAY ==
[2022-03-03 11:32] VITALS: BP 118/62; PULSE 73; RESP 18; TEMP 36.8; O2SAT 97; BMI 26.4
--- NOTE | 2022-03-03 12:33 | ED.DENTAL ---
HPI - Dental/Oral <MONISHA Ojeda - Last Filed: 03/03/22 12:42> General Chief complaint: Dental/Oral Stated complaint: wisdom tooth extraction,swelling rt side face Time Seen by Provider: 03/03/22 12:07 Source: patient Mode of arrival: Family Vehicle History of Present Illness HPI Narrative: This is a 26-year-old female status post wisdom tooth extraction to her upper right jaw 4 days ago and presents to the emergency department today with worsening swelling that started this morning, tenderness, and concern for infection. Patient is 6 months and is exclusively. Has not had any antibiotics thus far and has history of allergy to sulfa. Patient denies fevers, difficulty swallowing, denies neck pain or swelling affecting her ability to shoe or swallow. She denies swollen lymph nodes, chills, cough, or other symptom. She denies any discharge in her mouth, denies any swelling or mass inside her mouth. Related Data Home Medications Medication Instructions Recorded Confirmed prenat.vits,alice,voh-oouc-sttba 1 tab PO DAILY 02/28/21 10/31/21 Previous Rx's Medication Instructions Recorded amoxicillin 875 mg-potassium 1 tab PO BID 7 days #14 tabs 03/03/22 clavulanate 125 mg tablet Allergies Allergy/AdvReac Type Severity Reaction Status Date / Time promethazine [From Phenergan] Allergy Intermediate Hives Verified 10/31/21 13:54 Sulfa (Sulfonamide Allergy Intermediate Hives Verified 10/31/21 13:54 Antibiotics) Review of Systems <MONISHA Ojeda - Last Filed: 03/03/22 12:42> Review of Systems ROS Unobtainable: All systems reviewed & are unremarkable except as noted in HPI and below Patient History <MONISHA Ojeda - Last Filed: 03/03/22 12:42> Medical History Acne (~2008) Allergies (~1999) Ankle pain (~2013) Bronchitis (~1997) delivery, delivered, current hospitalization (~08/2021) Chicken pox (~1995) Fractures (~2017) Pneumonia (~2012) Seasonal allergies (~1999) Wears glasses Surgical History [place] teeth extracted Family History Mother Miscarriage DJD (degenerative joint disease) Macular degeneration Father Atrial fibrillation History of heart disease Grandmother Diabetes mellitus Grandfather Hypertension Glaucoma Grandmother History of heart disease Grandfather No problems noted. 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 ) current occupational exposures/hazards: No special ever needs: No seatbelt use: always do you feel safe at home: Yes Smoking Status: Never smoker second hand exposure: No alcohol intake: former (Pre-: rarely. ) substance use type: does not use during the past year weight has: remained stable well-balanced diet: daily or most days daily servings fruits/ve-4 caffeine: Yes (1 cup a week) Type(s) of exercise: walking and normal ROM and activity frequency: 3-4 times per week Smoking Status: Never smoker alcohol intake frequency: 0-2 drinks per day Substance Use Type: does not use Exam <MONISHA Ojeda - Last Filed: 03/03/22 12:42> Initial Vital Signs Initial Vital Signs: Vital Signs Temperature 98.2 F 03/03/22 11:32 Pulse Rate 73 03/03/22 11:32 Respiratory Rate 18 03/03/22 11:32 Blood Pressure 118/62 03/03/22 11:32 Pulse Oximetry 97 03/03/22 11:32 Oxygen Delivery Method 03/03/22 11:32 HENIL Head: normal to inspection Ears: hearing grossly normal bilaterally and mastoids normal Nose: external nose normal Face and sinus: edema on the right maxilla (upper jaw, near tmj, without tmj tenderness, can open and close, without visible abscess, fluctuance, discharge, anterior cervical lymphadenopathy, stridor, submandibular tenderness or difficulty swallowing) Mouth: oral mucosae normal, tongue normal and oropharynx normal Teeth and gingiva: gingiva normal and other (dental extraction, without edema, erythema, purulent drainage, or fluctuanc) Throat: posterior oropharynx normal and uvula midline <Sangeetha Almendarez DO - Last Filed: 03/03/22 16:12> Initial Vital Signs Initial Vital Signs: Vital Signs Temperature 98.2 F 03/03/22 11:32 Pulse Rate 73 03/03/22 11:32 Respiratory Rate 18 03/03/22 11:32 Blood Pressure 118/62 03/03/22 11:32 Pulse Oximetry 97 03/03/22 11:32 Oxygen Delivery Method 03/03/22 11:32 Course <MONISHA Ojeda - Last Filed: 03/03/22 12:42> Orders Ordered: Discontinued Medications Acetaminophen (Acetaminophen 325 Mg Tablet) 975 mg PO NOW ONE Stop: 03/03/22 12:16 Last Admin: 03/03/22 12:48 Dose: 975 mg Documented By: AT Amoxicillin/Clavulanate Potassium (Amoxicillin/Clav 875/125 Mg) 1 tab PO NOW ONE Stop: 03/03/22 12:21 Last Admin: 03/03/22 12:46 Dose: 1 tab Documented By: AT Dexamethasone (Dexamethasone 10 Mg/Ml Vial) 10 mg PO NOW ONE Stop: 03/03/22 12:16 Last Admin: 03/03/22 12:46 Dose: 10 mg Documented By: AT Ketorolac Tromethamine (Ketorolac 30 Mg/Ml Vial) 30 mg IM NOW ONE Stop: 03/03/22 12:16 Last Admin: 03/03/22 12:47 Dose: 30 mg Documented By: AT Vital Signs Vital signs: Vital Signs - 8 hr 03/03/22 11:32 03/03/22 12:54 Temperature 98.2 F Pulse Rate 73 73 Respiratory Rate 18 18 Blood Pressure 118/62 109/61 Pulse Oximetry 97 97 Oxygen Delivery Method Room Air Room Air <Sangeetha Almendarez DO - Last Filed: 03/03/22 16:12> Orders Ordered: Discontinued Medications Acetaminophen (Acetaminophen 325 Mg Tablet) 975 mg PO NOW ONE Stop: 03/03/22 12:16 Last Admin: 03/03/22 12:48 Dose: 975 mg Documented By: AT Amoxicillin/Clavulanate Potassium (Amoxicillin/Clav 875/125 Mg) 1 tab PO NOW ONE Stop: 03/03/22 12:21 Last Admin: 03/03/22 12:46 Dose: 1 tab Documented By: AT Dexamethasone (Dexamethasone 10 Mg/Ml Vial) 10 mg PO NOW ONE Stop: 03/03/22 12:16 Last Admin: 03/03/22 12:46 Dose: 10 mg Documented By: AT Ketorolac Tromethamine (Ketorolac 30 Mg/Ml Vial) 30 mg IM NOW ONE Stop: 03/03/22 12:16 Last Admin: 03/03/22 12:47 Dose: 30 mg Documented By: AT Vital Signs Vital signs: Vital Signs - 8 hr 03/03/22 11:32 03/03/22 12:54 Temperature 98.2 F Pulse Rate 73 73 Respiratory Rate 18 18 Blood Pressure 118/62 109/61 Pulse Oximetry 97 97 Oxygen Delivery Method Room Air Room Air MDM - Dental/Oral <Ally Pop [facility] - Last Filed: 03/03/22 12:42> MDM Narrative Medical decision making narrative: This is a 26-year-old female presents to the emergency department with concern for infection following her wisdom tooth extraction to her upper right jaw 4 days ago. She had mild swelling yesterday, woke up today with significantly larger swelling showed me pictures of the difference. She is without any toxic symptoms, afebrile, without anterior cervical lymphadenopathy difficulty closing her jaw. She has normal phonation without any respiratory distress, she has not had any antibiotics yet, has history of allergy to sulfa, will start on Augmentin twice a day for 7 days, given her 1st dose here in the emergency department. She is , gave 10 mg of p.o. Decadron for her distressing symptom of facial swelling. Her symptoms were improved after medications given here today. Patient is appropriate and amenable to discharge home. Vital signs are stable on repeat examination is unremarkable. Patient has been informed of results. Patient has been given strict return to ER precautions for any new or worsening symptoms. Patient understands to follow up closely with outpatient providers as instructed. Patient understands plan and agrees to discharge home. All questions and concerns answered at this time. Discharge Plan Departure Patient Disposition: Home Clinical Impression: Dental infection, Status post wisdom tooth extraction Instructions: Tooth Abscess, DI for Tooth Extraction Activity Restrictions/Additional Instructions: *You have been diagnosed with dental infection likely just starting with your swelling today. Please start taking ibuprofen again tomorrow, 600 mg every 6 hours with food and water, Tylenol 650 mg at the same time. Sit upright as much as possible throughout the day to help the swelling go down, stay hydrated, be careful so that you do not swish to clean your mouth too hard and take off a clot. Gently brush her teeth like usual, follow-up with your regular doctor and your dentist if you have ongoing swelling or worsening. This should start to get better in 24 hours. I hope you feel better soon. *What to do: *Please continue to take your regular medications as directed. [ x] New medication prescriptions sent to your pharmacy: [ [facility]] [ ] New medication written as a paper prescription [ ] No new medications given *Please follow up with your primary care provider in 2-3 days, call for an appointment. Let them know you were seen in the Emergency Department and that we asked that you be seen for follow-up. We will electronically transmit a record of today's note if your PCP is in our system *If you do not have a primary care provider please contact [phone] to establish care with one of [facility] primary care providers. *Return to Emergency Department if you should have any new, worsening, or concerning symptoms, such as [fever greater than 101F, chills, worsening pain, persistent vomiting or other bothersome symptoms]. Prescriptions: New amoxicillin-pot clavulanate 875-125 mg tablet 1 tab PO BID 7 Days Qty: 14 0RF No Action prenat.vits,alice,aoy-oizw-gwabt Tablet 1 tab PO DAILY Referrals: Edmundo Arguello [Primary Care Provider] - Visit Report Forms: Patient Portal/API <Sangeetha Almendarez DO - Last Filed: 03/03/22 16:12> Cosign ED Attending Dionicioature Attestation: I was immediately available in the department for consultation. Documentation has been reviewed. I agree with assessment and plan.
[2022-03-03] MEDS: DEXAMETHASONE 10 MG/ML VIAL PO (12:46)
[2022-03-03] MEDS: AMOXICILLIN/CLAV 875/125 MG 1 TAB PO (12:46)
[2022-03-03] MEDS: KETOROLAC 30 MG/ML VIAL IM (12:47)
[2022-03-03] MEDS: ACETAMINOPHEN 325 MG TABLET 975 MG PO (12:48)
[2022-03-03 12:54] VITALS: BP 109/61; PULSE 73; RESP 18; O2SAT 97
== END 2022-03-03 12:54 | disposition home or self-care (01) ==
PROVIDERS: Emergency Provider Nurse Practitioner Critical Care Medicine
DX: T81.40XA Infection following a procedure, unspecified, initial encounter (principal); K04.7 Periapical abscess without sinus
CPT/HCPCS: 96372; 99283; J1100; J1885

== ENCOUNTER → 2022-09-30 07:41 | Outpatient (CLI) | payer OTHER, SELFPAY ==
--- NOTE | 2022-09-30 | DI.NM.S_ITS ---
PROCEDURE: NM EXERCISE TREADMILL NON NUC COMPARISON: None. INDICATIONS: Cardiac murmur, unspecified FINDINGS: The patient exercised for 11 minutes and 21 seconds reaching 11.2METS, JAIRO -11% and 93% of maximum predicted heart rate. Appropriate BP response to exercise (resting BP 98/60mmHg, max BP 160/80mmHg). No angina, no diagnostic ST changes, and no ectopy during exercise and recovery. IMPRESSION: Low risk, normal treadmill ECG only stress test with above average exercise tolerance (JAIRO -11%). Dictated by: Kali Calvo MD on 10/01/2022 at 13:13 Approved by: Kali Calvo MD on 10/01/2022 at 13:15
== END ==
PROVIDERS: Referring Provider Internal Medicine Cardiovascular Disease; Visit Provider Internal Medicine Cardiovascular Disease
DX: R01.1 Cardiac murmur, unspecified (principal)
CPT/HCPCS: 93017